=== PATIENT | male | born 1985 | race American Indian/Alaskan Native ===

== ENCOUNTER 2017-09-23 23:14 | Inpatient (IN) | payer SELFPAY ==
[2017-09-24] MEDS ORDERED: NACL 0.9% 1000 ML 1,000 ML IV ONE ×2 (00:16→06:20)
--- NOTE | 2017-09-24 00:16 | Emergency Department Report ---
ED General Adult HPI - General Chief complaint: Fall Stated complaint: GENERAL WEAKNESS Time Seen by Provider: 09/24/17 00:14 Source: EMS Mode of arrival: Stretcher Limitations: No Limitations - History of Present Illness Initial comments: Previously healthy 31-year-old man presents with generalized muscular and abdominal cramping after working outdoors in the sun for approximately 6-8 hours earlier in the day, during which time patient was working heavily with significant exertion. He began to feel badly after about 5 or 6 hours, but this was time for his lunch break, but he did not feel any better after eating, and had to stop working at approximately 2 PM, or 10 hours earlier to arrival. He tried to go home, but began having significant generalized muscular and abdominal cramping, with repeated bouts of nausea and vomiting, and subsequently has developed bilateral chest pain, significantly worse on the right, and is concerned about a rib fracture from the effort at the repeated vomiting. He also became weak after he had gotten home, and fell in the shower from unsteadiness, but did not pass out, did not strike his head, did not lose consciousness, and does not believe that this contributed to his chest pain. EMS was called, and he was treated initially with a liter saline, transported in stable condition, feels a little bit better, but still feels dry mouth, and wants to have something to drink. He also still has significant aching generally, but feels a little more comfortable. Gen. 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 He was in good health, and had not been ill over the past few days, had been well-hydrated, but did not drink very much during the course of this exertion today. -: Gradual (10-12 hours ago) Location: chest, back, abdomen, left, right, upper extremity, lower extremity Severity scale (0 -10): 9 Quality: aching, sharp Consistency: constant Worsens with: movement - Related Data Allergies Allergy/AdvReac Type Severity Reaction Status Date / Time No Known Allergies Allergy Unverified 09/24/17 01:33 ED Review of Systems ROS: Stated complaint: GENERAL WEAKNESS Other details as noted in HPI Comment: All other systems reviewed and negative Constitutional: diaphoresis, malaise, weakness, other (generalized pain). denies: chills, fever Eyes: denies: eye pain, eye discharge, vision change ENT: denies: ear pain, throat pain Respiratory: other (bilateral chest wall pain, right greater than left). denies : shortness of breath Cardiovascular: denies: palpitations, dyspnea on exertion Endocrine: excessive sweating. denies: increased hunger, increased thirst, increased urine Gastrointestinal: abdominal pain, nausea, vomiting. denies: diarrhea, constipation, hematemesis, melena Musculoskeletal: as per HPI, other (generalized musculoskeletal pain, but torso as well as extremities) Skin: denies: rash, lesions, change in color Neurological: weakness, numbness (particular area of upper extremities distally) , paresthesias Psychiatric: denies: anxiety, depression Hematological/Lymphatic: denies: easy bleeding, easy bruising ED Past Medical Hx - Past Medical History Previous Medical History?: No - Surgical History Past Surgical History?: No - Social History Smoking Status: Current Every Day Smoker Substance Use Type: Alcohol ED Physical Exam - General Limitations: No Limitations General appearance: anxious, in distress (crampy muscular skeletal discomfort evident, lying on stretcher and hunched position) - Head Head exam: Present: atraumatic, normocephalic - Eye Eye exam: Present: PERRL - ENT ENT exam: Present: mucous membranes dry - Neck Neck exam: Present: normal inspection, tenderness (bilateral paracervical muscular), full ROM. Absent: meningismus - Respiratory Respiratory exam: Present: normal lung sounds bilaterally, chest wall tenderness (right lower lateral chest wall). Absent: respiratory distress, wheezes, rales, rhonchi - Cardiovascular Cardiovascular Exam: Present: regular rate, normal heart sounds - GI/Abdominal GI/Abdominal exam: Present: tenderness (generalized muscles helpful abdominal tenderness, nonlocalized). Absent: guarding, rebound - Rectal Rectal exam: Present: deferred - Extremities Exam Extremities exam: Present: normal inspection, tenderness (muscular skeletal soft tissue, worsen, advised, biceps,) - Back Exam Back exam: Present: normal inspection, tenderness, muscle spasm, paraspinal tenderness. Absent: CVA tenderness (R), CVA tenderness (L), vertebral tenderness - Neurological Exam Neurological exam: Present: alert, oriented X3, CN II-XII intact. Absent: motor sensory deficit - Psychiatric Psychiatric exam: Present: agitated, anxious - Skin Skin exam: Present: warm, dry. Absent: diaphoretic, petechiae, abrasion, ecchymosis ED Course Vital Signs 09/23/17 09/24/17 23:31 01:30 Temperature 97.6 F Pulse Rate 72 Respiratory 18 Rate Blood Pressure 108/69 O2 Sat by Pulse 94 Oximetry - Reevaluation(s) Reevaluation #1: 09/24/17 06:13 Patient improved after rehydration with normal saline, and also tolerates oral fluids, but still has significant muscle tenderness, and generalized achiness. Significantly, patient's white count is markedly elevated at 30,000, and he has appearance of a right lower lobe pneumonia, although this is previously been asymptomatic, and his clinical picture is more descriptive of an acute rhabdomyolysis. - Consultations Consultation #1: 09/24/17 06:18 Dr. Nunez, hospitalist cardiac surgeon, contacted at 0610 hrs., with patient's findings of acute rhabdomyolysis, and apparent right lower lobe pneumonia, with current treatments, rehydration, and initial antibiotic therapy. She accepts patient for care, and will see patient at time of admission. ED Medical Decision Making - Lab Data Result diagrams: 09/24/17 00:20 09/24/17 00:20 - Radiology Data interpreted by me: Patient has an acute right lower lobe infiltrate, with obscuring of the right hemidiaphragm, but is also possible patient could have an elevated right hemidiaphragm. - Medical Decision Making This patient has acute rhabdomyolysis, as result of recent significant exertion during the middle of the heat of the work day. His creatine kinase is significantly elevated at 2400, but patient's urine on direct observation after intravenous rehydration was fairly clear and moderately yellowish, but with no distinct discoloration. However, patient's clinical findings also included unexpected finding of an acute right lower lobe infiltrate, which had not been symptomatically, the patient had no symptoms of chest discomfort until after he became ill during the middle of the afternoon. It is possible patient could've had a subclinical pneumonia, and additionally became symptomatic as a result of acute dehydration and exertional stress, the patient will be treated for acute pneumonia in any case. Blood cultures have been drawn, and IV and oral rehydration have been continued. Dr. Nunez, hospitalist contacted, and she will admit patient for further care. - Differential Diagnosis rhabdomyolysis, dehydration, heat exhaustion, heat stroke Critical Care Time: Yes Critical care attestation.: If time is entered above; I have spent that time in minutes in the direct care of this critically ill patient, excluding procedure time. Critical Care Time: 30 minutes of critical care time was provided and assessing and stabilizing patient with findings of acute rhabdomyolysis, as well as concomitant right lower lobe pneumonia. No billable procedures were performed during this patient encounter. ED Disposition Clinical Impression: Exertional rhabdomyolysis, Pneumonia of right lower lobe due to infectious organism Disposition: OP ADMIT IP TO THIS HOSP Is pt being admited?: Yes Does the pt Need Aspirin: No Condition: Stable Instructions: Bacterial Pneumonia (ED) Referrals: PRIMARY CARE, [Primary Care Provider] - 3-5 Days Time of Disposition: 06:18
[2017-09-24] MEDS ORDERED: MORPHINE IV ONE (00:39)
[2017-09-24] MEDS ORDERED: ZOFRAN ODT PO ONE (00:39)
[2017-09-24 00:55] LABS: Hematocrit 53.6 % (35.5-45.6); Hemoglobin 17.5 gm/dl (11.8-15.2); Mean Corpuscular HGB Conc 33 % (32-34); Mean Corpuscular Hemoglobin 28 pg (28-32); Mean Corpuscular Volume 86 fl (84-94); Platelet Count 344 K/mm3 (140-440); Red Blood Count 6.23 M/mm3 (3.65-5.03); Red Cell Distribution Width 14.1 % (13.2-15.2)
[2017-09-24 00:56] LABS: Albumin 5.1 g/dL (3.9-5); Calcium 10.4 mg/dL (8.4-10.2)
[2017-09-24] MEDS: ATIVAN IV PRN ×2 (01:28→14:20)
[2017-09-24 02:34] LABS: Band Neutrophils # (Manual) 3.3 K/mm3; Basophils % (Manual) 0 % (0.0-1.8); Eosinophils % (Manual) 0 % (0.0-4.3); Total Cells Counted 100
[2017-09-24 02:36] LABS: Anisocytosis 1+; Hypochromasia Few; Large Platelets Few
[2017-09-24] MEDS ORDERED: ROCEPHIN IM ONE (05:53)
[2017-09-24] MEDS ORDERED: XYLOCAINE 1% MPF 5 mL INFILTRATI ONE (05:53)
[2017-09-24 06:35] LABS: Amorphous Crystals,Urine 1+; Bilirubin,Urine NEG (Negative); Blood,Urine MOD (Negative); Color,Urine Yellow (Yellow); Hyaline Casts,Urine 3 /LPF; Urobilinogen,Urine < 2.0 mg/dL (<2.0)
[2017-09-24 07:15] LABS: BUN/Creatinine Ratio 17; Blood Urea Nitrogen 25 mg/dL (9-20); Calcium 9.3 mg/dL (8.4-10.2); Hemolysis Index 13
--- NOTE | 2017-09-24 11:36 | History and Physical Report ---
History of Present Illness Date of examination: 09/24/17 Date of admission: 09/24/17 06:43 Chief complaint: cough, muscle cramping History of present illness: Previously healthy 31-year-old man presents with generalized muscular and abdominal cramping after working outdoors in the sun for approximately 6-8 hours earlier in the day, during which time patient was working heavily with significant exertion. He began to feel badly after about 5 or 6 hours, but this was time for his lunch break, but he did not feel any better after eating, and had to stop working at approximately 2 PM, or 10 hours earlier to arrival. He tried to go home, but began having significant generalized muscular and abdominal cramping, with repeated bouts of nausea and vomiting, and subsequently has developed bilateral chest pain, significantly worse on the right, and is concerned about a rib fracture from the effort at the repeated vomiting. He also became weak after he had gotten home, and fell in the shower from unsteadiness, but did not pass out, did not strike his head, did not lose consciousness, and does not believe that this contributed to his chest pain. EMS was called, and he was treated initially with a liter saline, transported in stable condition, feels a little bit better, but still feels dry mouth, and wants to have something to drink. He also still has significant aching generally, but feels a little more comfortable. Past History Past Medical History: No medical history Past Surgical History: No surgical history Social history: smoking Family history: no significant family history Medications and Allergies Allergies Allergy/AdvReac Type Severity Reaction Status Date / Time No Known Allergies Allergy Unverified 09/24/17 01:33 Active Meds: Active Medications Lorazepam (Ativan) 1 mg IV Q1H PRN PRN Reason: Muscle Spasm Last Admin: 09/24/17 01:28 Dose: 1 mg Review of Systems All systems: negative Exam - Constitutional Vitals: Temp Pulse Resp BP Pulse Ox 97.6 F 83 20 120/51 96 09/23/17 23:31 09/24/17 09:00 09/24/17 09:00 09/24/17 09:00 09/24/17 09:00 General appearance: Present: no acute distress, well-nourished - EENT Eyes: Present: PERRL ENT: hearing intact, clear oral mucosa - Neck Neck: Present: supple, normal ROM - Respiratory Respiratory effort: normal Respiratory: right: diminished, rhonchi, left: CTA - Cardiovascular Heart Sounds: Present: S1 & S2. Absent: rub, click - Extremities Extremities: pulses symmetrical, No edema Peripheral Pulses: within normal limits - Abdominal General gastrointestinal: Present: soft, non-tender, non-distended, normal bowel sounds Male genitourinary: Present: normal - Integumentary Integumentary: Present: clear, warm, dry - Musculoskeletal Musculoskeletal: gait normal, strength equal bilaterally - Psychiatric Psychiatric: appropriate mood/affect, intact judgment & insight - Neurologic Neurologic: CNII-XII intact, moves all extremities Results - Labs CBC & Chem 7: 09/24/17 00:20 09/24/17 06:37 Labs: Laboratory Last Values WBC 30.3 K/mm3 (4.5-11.0) H 09/24/17 00:20 RBC 6.23 M/mm3 (3.65-5.03) H 09/24/17 00:20 Hgb 17.5 gm/dl (11.8-15.2) H 09/24/17 00:20 Hct 53.6 % (35.5-45.6) H 09/24/17 00:20 MCV 86 fl (84-94) 09/24/17 00:20 MCH 28 pg (28-32) 09/24/17 00:20 MCHC 33 % (32-34) 09/24/17 00:20 RDW 14.1 % (13.2-15.2) 09/24/17 00:20 Plt Count 344 K/mm3 (140-440) 09/24/17 00:20 Add Manual Diff Complete 09/24/17 00:20 Total Counted 100 09/24/17 00:20 Seg Neutrophils % Structural Fitter 09/24/17 00:20 Seg Neuts % (Manual) 67.0 % (40.0-70.0) 09/24/17 00:20 Band Neutrophils % 11.0 % 09/24/17 00:20 Lymphocytes % (Manual) 13.0 % (13.4-35.0) L 09/24/17 00:20 Reactive Lymphs % (Man) 0 % 09/24/17 00:20 Monocytes % (Manual) 9.0 % (0.0-7.3) H 09/24/17 00:20 Eosinophils % (Manual) 0 % (0.0-4.3) 09/24/17 00:20 Basophils % (Manual) 0 % (0.0-1.8) 09/24/17 00:20 Metamyelocytes % 0 % 09/24/17 00:20 Myelocytes % 0 % 09/24/17 00:20 Promyelocytes % 0 % 09/24/17 00:20 Blast Cells % 0 % 09/24/17 00:20 Nucleated RBC % Not Reportable 09/24/17 00:20 Seg Neutrophils # Man 20.3 K/mm3 (1.8-7.7) H 09/24/17 00:20 Band Neutrophils # 3.3 K/mm3 09/24/17 00:20 Lymphocytes # (Manual) 3.9 K/mm3 (1.2-5.4) 09/24/17 00:20 Abs React Lymphs (Man) 0.0 K/mm3 09/24/17 00:20 Monocytes # (Manual) 2.7 K/mm3 (0.0-0.8) H 09/24/17 00:20 Eosinophils # (Manual) 0.0 K/mm3 (0.0-0.4) 09/24/17 00:20 Basophils # (Manual) 0.0 K/mm3 (0.0-0.1) 09/24/17 00:20 Metamyelocytes # 0.0 K/mm3 09/24/17 00:20 Myelocytes # 0.0 K/mm3 09/24/17 00:20 Promyelocytes # 0.0 K/mm3 09/24/17 00:20 Blast Cells # 0.0 K/mm3 09/24/17 00:20 WBC Morphology Not Reportable 09/24/17 00:20 Hypersegmented Neuts Not Reportable 09/24/17 00:20 Hyposegmented Neuts Not Reportable 09/24/17 00:20 Hypogranular Neuts Not Reportable 09/24/17 00:20 Smudge Cells Not Reportable 09/24/17 00:20 Toxic Granulation Not Reportable 09/24/17 00:20 Toxic Vacuolation Not Reportable 09/24/17 00:20 Dohle Bodies Not Reportable 09/24/17 00:20 Pelger-Huet Anomaly Not Reportable 09/24/17 00:20 Anne Rods Not Reportable 09/24/17 00:20 Platelet Estimate Appears normal 09/24/17 00:20 Clumped Platelets Not Reportable 09/24/17 00:20 Plt Clumps, EDTA Not Reportable 09/24/17 00:20 Large Platelets Few 09/24/17 00:20 Giant Platelets Not Reportable 09/24/17 00:20 Platelet Satelliting Not Reportable 09/24/17 00:20 Plt Morphology Comment Not Reportable 09/24/17 00:20 RBC Morphology Not Reportable 09/24/17 00:20 Dimorphic RBCs Not Reportable 09/24/17 00:20 Polychromasia Not Reportable 09/24/17 00:20 Hypochromasia Few 09/24/17 00:20 Poikilocytosis Not Reportable 09/24/17 00:20 Anisocytosis 1+ 09/24/17 00:20 Microcytosis Not Reportable 09/24/17 00:20 Macrocytosis Not Reportable 09/24/17 00:20 Spherocytes Not Reportable 09/24/17 00:20 Pappenheimer Bodies Not Reportable 09/24/17 00:20 Sickle Cells Not Reportable 09/24/17 00:20 Target Cells Not Reportable 09/24/17 00:20 Tear Drop Cells Not Reportable 09/24/17 00:20 Ovalocytes Not Reportable 09/24/17 00:20 Helmet Cells Not Reportable 09/24/17 00:20 [place] Bodies Not Reportable 09/24/17 00:20 [place] Rings Not Reportable 09/24/17 00:20 Elva Cells Not Reportable 09/24/17 00:20 Bite Cells Not Reportable 09/24/17 00:20 Crenated Cell Not Reportable 09/24/17 00:20 Elliptocytes Not Reportable 09/24/17 00:20 Acanthocytes (Spur) Not Reportable 09/24/17 00:20 Rouleaux Not Reportable 09/24/17 00:20 Hemoglobin C Crystals Not Reportable 09/24/17 00:20 Schistocytes Not Reportable 09/24/17 00:20 Malaria parasites Not Reportable 09/24/17 00:20 Arnold Bodies Not Reportable 06/02/18 00:20 Hem Pathologist Commnt No 09/24/17 00:20 Sodium 136 mmol/L (137-145) L 09/24/17 06:37 Potassium 4.3 mmol/L (3.6-5.0) 09/24/17 06:37 Chloride 91.0 mmol/L (98-107) L 09/24/17 06:37 Carbon Dioxide 26 mmol/L (22-30) 09/24/17 06:37 Anion Gap 23 mmol/L 09/24/17 06:37 BUN 25 mg/dL (9-20) H 09/24/17 06:37 Creatinine 1.5 mg/dL (0.8-1.5) 09/24/17 06:37 Estimated GFR > 60 ml/min 09/24/17 06:37 BUN/Creatinine Ratio 17 % 09/24/17 06:37 Glucose 108 mg/dL (75-100) H 09/24/17 06:37 Lactic Acid 1.90 mmol/L (0.7-2.0) 09/24/17 02:03 Calcium 9.3 mg/dL (8.4-10.2) 09/24/17 06:37 Total Bilirubin 0.50 mg/dL (0.1-1.2) 09/24/17 00:20 AST 54 units/L (5-40) H 09/24/17 00:20 ALT 23 units/L (7-56) 09/24/17 00:20 Alkaline Phosphatase 116 units/L (35-129) 09/24/17 00:20 Total Creatine Kinase 4946 units/L (55-170) H 09/24/17 06:37 Total Protein 8.5 g/dL (6.3-8.2) H 09/24/17 00:20 Albumin 5.1 g/dL (3.9-5) H 09/24/17 00:20 Albumin/Globulin Ratio 1.5 % 09/24/17 00:20 Urine Color Yellow (Yellow) 09/24/17 06:11 Urine Turbidity Clear (Clear) 09/24/17 06:11 Urine pH 5.0 (5.0-7.0) 09/24/17 06:11 Ur Specific [place] 1.014 (1.003-1.030) 09/24/17 06:11 Urine Protein 30 mg/dl mg/dL (Negative) 09/24/17 06:11 Urine Glucose (UA) Neg mg/dL (Negative) 09/24/17 06:11 Urine Ketones Neg mg/dL (Negative) 09/24/17 06:11 Urine Blood Mod (Negative) 09/24/17 06:11 Urine Nitrite Neg (Negative) 09/24/17 06:11 Urine Bilirubin Neg (Negative) 09/24/17 06:11 Urine Urobilinogen < 2.0 mg/dL (<2.0) 09/24/17 06:11 Ur Leukocyte Esterase Neg (Negative) 09/24/17 06:11 Urine WBC (Auto) 1.0 /HPF (0.0-6.0) 09/24/17 06:11 Urine RBC (Auto) 6.0 /HPF (0.0-6.0) 09/24/17 06:11 Amorphous Crystals 1+ 09/24/17 06:11 Hyaline Casts 3 /LPF 09/24/17 06:11 Assessment and Plan Assessment and plan: Sepsis. Patient will be placed on the sepsis pathway and we will follow-up blood cultures. Continue IV antibiotics. Right lower lobe pneumonia. Continue IV antibiotics and follow-up chest x-ray. Pleurisy. Etiology of chest pain is likely secondary to right lower lobe pneumonia. Toradol when necessary. Rhabdomyolysis. Etiology secondary to the physical exertion and pneumonia. Continue to follow CK levels and continue IV fluid hydration.
[2017-09-24] MEDS: NACL 0.9% 1000 ML 1,000 ML IV SCH (14:20)
[2017-09-24] MEDS: MORPHINE IV PRN (14:21)
[2017-09-24] MEDS: LOVENOX SUB-Q SCH (22:00)
[2017-09-25] MEDS: NACL 0.9% 1000 ML 1,000 ML IV SCH ×2 (03:59→21:44)
[2017-09-25 06:24] LABS: Basophils % (Auto) 0.4 % (0.0-1.8); Eosinophils % (Auto) 0.4 % (0.0-4.3); Hematocrit 46.3 % (35.5-45.6); Hemoglobin 15.2 gm/dl (11.8-15.2); Lymphocytes # (Auto) 2.6 K/mm3 (1.2-5.4); Lymphocytes % (Auto) 22.5 % (13.4-35.0); Mean Corpuscular HGB Conc 33 % (32-34); Mean Corpuscular Hemoglobin 28 pg (28-32); Mean Corpuscular Volume 85 fl (84-94); Monocytes # (Auto) 0.8 K/mm3 (0.0-0.8); Monocytes % (Auto) 7.1 % (0.0-7.3); Platelet Count 277 K/mm3 (140-440); Red Blood Count 5.46 M/mm3 (3.65-5.03); Red Cell Distribution Width 13.9 % (13.2-15.2)
[2017-09-25 07:04] LABS: BUN/Creatinine Ratio 15; Blood Urea Nitrogen 12 mg/dL (9-20); Calcium 8.5 mg/dL (8.4-10.2); Hemolysis Index 3
[2017-09-25] MEDS: MORPHINE IV PRN (09:43)
--- NOTE | 2017-09-25 11:27 | Progress Note ---
Assessment and Plan Assessment and plan: Sepsis. Continue IV antibiotics. Right lower lobe pneumonia. Continue IV antibiotics and follow-up chest x-ray. Pleurisy. Etiology of chest pain is likely secondary to right lower lobe pneumonia. Toradol when necessary. Rhabdomyolysis. Etiology secondary to the physical exertion and pneumonia. Continue to follow CK levels and continue IV fluid hydration. History Interval history: No New issues overnight. Hospitalist Physical - Constitutional Vitals: Temp Pulse Resp BP Pulse Ox 98.9 F 76 16 122/74 100 09/25/17 08:03 09/25/17 08:03 09/25/17 08:03 09/25/17 08:03 09/25/17 08:03 General appearance: Present: no acute distress, well-nourished - EENT Eyes: Present: PERRL, EOM intact ENT: hearing intact, clear oral mucosa, dentition normal - Neck Neck: Present: supple, normal ROM - Respiratory Respiratory effort: normal Respiratory: bilateral: CTA - Cardiovascular Rhythm: regular Heart Sounds: Present: S1 & S2. Absent: gallop, rub - Extremities Extremities: no ischemia, No edema, Full ROM - Abdominal General gastrointestinal: soft, non-tender, non-distended, normal bowel sounds - Integumentary Integumentary: Present: clear, warm, dry - Neurologic Neurologic: CNII-XII intact, moves all extremities Results - Labs CBC & Chem 7: 09/25/17 05:25 09/25/17 05:25 Labs: Laboratory Last Values WBC 11.7 K/mm3 (4.5-11.0) H 09/25/17 05:25 RBC 5.46 M/mm3 (3.65-5.03) H 09/25/17 05:25 Hgb 15.2 gm/dl (11.8-15.2) 09/25/17 05:25 Hct 46.3 % (35.5-45.6) H D 09/25/17 05:25 MCV 85 fl (84-94) 09/25/17 05:25 MCH 28 pg (28-32) 09/25/17 05:25 MCHC 33 % (32-34) 09/25/17 05:25 RDW 13.9 % (13.2-15.2) 09/25/17 05:25 Plt Count 277 K/mm3 (140-440) 09/25/17 05:25 Lymph % (Auto) 22.5 % (13.4-35.0) 09/25/17 05:25 [place] % (Auto) 7.1 % (0.0-7.3) 09/25/17 05:25 Eos % (Auto) 0.4 % (0.0-4.3) 09/25/17 05:25 Baso % (Auto) 0.4 % (0.0-1.8) 09/25/17 05:25 Lymph # 2.6 K/mm3 (1.2-5.4) 09/25/17 05:25 [place] # 0.8 K/mm3 (0.0-0.8) 09/25/17 05:25 Eos # 0.0 K/mm3 (0.0-0.4) 09/25/17 05:25 Baso # 0.0 K/mm3 (0.0-0.1) 09/25/17 05:25 Add Manual Diff Complete 09/24/17 00:20 Total Counted 100 09/24/17 00:20 Seg Neutrophils % 69.6 % (40.0-70.0) 09/25/17 05:25 Seg Neuts % (Manual) 67.0 % (40.0-70.0) 09/24/17 00:20 Band Neutrophils % 11.0 % 09/24/17 00:20 Lymphocytes % (Manual) 13.0 % (13.4-35.0) L 09/24/17 00:20 Reactive Lymphs % (Man) 0 % 09/24/17 00:20 Monocytes % (Manual) 9.0 % (0.0-7.3) H 09/24/17 00:20 Eosinophils % (Manual) 0 % (0.0-4.3) 09/24/17 00:20 Basophils % (Manual) 0 % (0.0-1.8) 09/24/17 00:20 Metamyelocytes % 0 % 09/24/17 00:20 Myelocytes % 0 % 09/24/17 00:20 Promyelocytes % 0 % 09/24/17 00:20 Blast Cells % 0 % 09/24/17 00:20 Nucleated RBC % Not Reportable 09/24/17 00:20 Seg Neutrophils # 8.1 K/mm3 (1.8-7.7) H 09/25/17 05:25 Seg Neutrophils # Man 20.3 K/mm3 (1.8-7.7) H 09/24/17 00:20 Band Neutrophils # 3.3 K/mm3 09/24/17 00:20 Lymphocytes # (Manual) 3.9 K/mm3 (1.2-5.4) 09/24/17 00:20 Abs React Lymphs (Man) 0.0 K/mm3 09/24/17 00:20 Monocytes # (Manual) 2.7 K/mm3 (0.0-0.8) H 09/24/17 00:20 Eosinophils # (Manual) 0.0 K/mm3 (0.0-0.4) 09/24/17 00:20 Basophils # (Manual) 0.0 K/mm3 (0.0-0.1) 09/24/17 00:20 Metamyelocytes # 0.0 K/mm3 09/24/17 00:20 Myelocytes # 0.0 K/mm3 09/24/17 00:20 Promyelocytes # 0.0 K/mm3 09/24/17 00:20 Blast Cells # 0.0 K/mm3 09/24/17 00:20 WBC Morphology Not Reportable 09/24/17 00:20 Hypersegmented Neuts Not Reportable 09/24/17 00:20 Hyposegmented Neuts Not Reportable 09/24/17 00:20 Hypogranular Neuts Not Reportable 09/24/17 00:20 Smudge Cells Not Reportable 09/24/17 00:20 Toxic Granulation Not Reportable 09/24/17 00:20 Toxic Vacuolation Not Reportable 09/24/17 00:20 Dohle Bodies Not Reportable 09/24/17 00:20 Pelger-Huet Anomaly Not Reportable 09/24/17 00:20 Anne Rods Not Reportable 09/24/17 00:20 Platelet Estimate Appears normal 09/24/17 00:20 Clumped Platelets Not Reportable 09/24/17 00:20 Plt Clumps, EDTA Not Reportable 09/24/17 00:20 Large Platelets Few 09/24/17 00:20 Giant Platelets Not Reportable 09/24/17 00:20 Platelet Satelliting Not Reportable 09/24/17 00:20 Plt Morphology Comment Not Reportable 09/24/17 00:20 RBC Morphology Not Reportable 09/24/17 00:20 Dimorphic RBCs Not Reportable 09/24/17 00:20 Polychromasia Not Reportable 09/24/17 00:20 Hypochromasia Few 09/24/17 00:20 Poikilocytosis Not Reportable 09/24/17 00:20 Anisocytosis 1+ 09/24/17 00:20 Microcytosis Not Reportable 09/24/17 00:20 Macrocytosis Not Reportable 09/24/17 00:20 Spherocytes Not Reportable 09/24/17 00:20 Pappenheimer Bodies Not Reportable 09/24/17 00:20 Sickle Cells Not Reportable 09/24/17 00:20 Target Cells Not Reportable 09/24/17 00:20 Tear Drop Cells Not Reportable 09/24/17 00:20 Ovalocytes Not Reportable 09/24/17 00:20 Helmet Cells Not Reportable 09/24/17 00:20 [place] Bodies Not Reportable 09/24/17 00:20 [place] Rings Not Reportable 09/24/17 00:20 Elva Cells Not Reportable 09/24/17 00:20 Bite Cells Not Reportable 09/24/17 00:20 Crenated Cell Not Reportable 09/24/17 00:20 Elliptocytes Not Reportable 09/24/17 00:20 Acanthocytes (Spur) Not Reportable 09/24/17 00:20 Rouleaux Not Reportable 09/24/17 00:20 Hemoglobin C Crystals Not Reportable 09/24/17 00:20 Schistocytes Not Reportable 09/24/17 00:20 Malaria parasites Not Reportable 09/24/17 00:20 Arnold Bodies Not Reportable 09/24/17 00:20 Hem Pathologist Commnt No 09/24/17 00:20 Sodium 140 mmol/L (137-145) 09/25/17 05:25 Potassium 4.7 mmol/L (3.6-5.0) 09/25/17 05:25 Chloride 102.6 mmol/L (98-107) 09/25/17 05:25 Carbon Dioxide 28 mmol/L (22-30) 09/25/17 05:25 Anion Gap 14 mmol/L 09/25/17 05:25 BUN 12 mg/dL (9-20) 09/25/17 05:25 Creatinine 0.8 mg/dL (0.8-1.5) 09/25/17 05:25 Estimated GFR > 60 ml/min 09/25/17 05:25 BUN/Creatinine Ratio 15 % 09/25/17 05:25 Glucose 91 mg/dL (75-100) 09/25/17 05:25 Lactic Acid 1.00 mmol/L (0.7-2.0) 09/24/17 15:21 Calcium 8.5 mg/dL (8.4-10.2) 09/25/17 05:25 Total Bilirubin 0.50 mg/dL (0.1-1.2) 09/24/17 00:20 AST 54 units/L (5-40) H 09/24/17 00:20 ALT 23 units/L (7-56) 09/24/17 00:20 Alkaline Phosphatase 116 units/L (35-129) 09/24/17 00:20 Total Creatine Kinase 8486 units/L (55-170) H 09/25/17 05:25 Total Protein 8.5 g/dL (6.3-8.2) H 09/24/17 00:20 Albumin 5.1 g/dL (3.9-5) H 09/24/17 00:20 Albumin/Globulin Ratio 1.5 % 09/24/17 00:20 Urine Color Yellow (Yellow) 09/24/17 06:11 Urine Turbidity Clear (Clear) 09/24/17 06:11 Urine pH 5.0 (5.0-7.0) 09/24/17 06:11 Ur Specific [place] 1.014 (1.003-1.030) 09/24/17 06:11 Urine Protein 30 mg/dl mg/dL (Negative) 09/24/17 06:11 Urine Glucose (UA) Neg mg/dL (Negative) 09/24/17 06:11 Urine Ketones Neg mg/dL (Negative) 09/24/17 06:11 Urine Blood Mod (Negative) 09/24/17 06:11 Urine Nitrite Neg (Negative) 09/24/17 06:11 Urine Bilirubin Neg (Negative) 09/24/17 06:11 Urine Urobilinogen < 2.0 mg/dL (<2.0) 09/24/17 06:11 Ur Leukocyte Esterase Neg (Negative) 09/24/17 06:11 Urine WBC (Auto) 1.0 /HPF (0.0-6.0) 09/24/17 06:11 Urine RBC (Auto) 6.0 /HPF (0.0-6.0) 09/24/17 06:11 Amorphous Crystals 1+ 09/24/17 06:11 Hyaline Casts 3 /LPF 09/24/17 06:11 Blood Type O POSITIVE 09/24/17 15:25 Antibody Screen Negative 09/24/17 15:25
[2017-09-25] MEDS: LOVENOX SUB-Q SCH (21:44)
--- NOTE | 2017-09-26 09:17 | Progress Note ---
Assessment and Plan Assessment and plan: Sepsis. Continue IV antibiotics. Blood cultures no growth 48 hours. Right lower lobe community-acquired pneumonia. Continue IV antibiotics and follow-up chest x-ray. Pleurisy. Etiology of chest pain is likely secondary to right lower lobe pneumonia. Toradol when necessary. Rhabdomyolysis. Etiology secondary to the physical exertion and pneumonia. Continue to follow CK levels/creatinine and continue IV fluid hydration. CK level 9369. Anticipate discharge once CK level less than 4000. Acute renal failure. Etiology multifactorial likely secondary to acute kidney injury from sepsis/ATN, vasomotor nephropathy from dehydration and rhabdomyolysis. Resolved. Continue IV fluid hydration. Check renal ultrasound. History Interval history: No New issues overnight. Hospitalist Physical - Constitutional Vitals: Temp Pulse Resp BP Pulse Ox 97.8 F 54 L 18 106/65 100 09/25/17 23:44 09/25/17 23:44 09/25/17 23:44 09/25/17 23:44 09/25/17 23:44 General appearance: Present: no acute distress, well-nourished - EENT Eyes: Present: PERRL, EOM intact ENT: hearing intact, clear oral mucosa, dentition normal - Neck Neck: Present: supple, normal ROM - Respiratory Respiratory effort: normal Respiratory: bilateral: CTA - Cardiovascular Rhythm: regular Heart Sounds: Present: S1 & S2. Absent: gallop, rub - Extremities Extremities: no ischemia, No edema, Full ROM - Abdominal General gastrointestinal: soft, non-tender, non-distended, normal bowel sounds - Integumentary Integumentary: Present: clear, warm, dry - Neurologic Neurologic: CNII-XII intact, moves all extremities Results - Labs CBC & Chem 7: 09/25/17 05:25 09/25/17 05:25 Labs: Laboratory Last Values WBC 11.7 K/mm3 (4.5-11.0) H 09/25/17 05:25 RBC 5.46 M/mm3 (3.65-5.03) H 09/25/17 05:25 Hgb 15.2 gm/dl (11.8-15.2) 09/25/17 05:25 Hct 46.3 % (35.5-45.6) H D 09/25/17 05:25 MCV 85 fl (84-94) 09/25/17 05:25 MCH 28 pg (28-32) 09/25/17 05:25 MCHC 33 % (32-34) 09/25/17 05:25 RDW 13.9 % (13.2-15.2) 09/25/17 05:25 Plt Count 277 K/mm3 (140-440) 09/25/17 05:25 Lymph % (Auto) 22.5 % (13.4-35.0) 09/25/17 05:25 [place] % (Auto) 7.1 % (0.0-7.3) 09/25/17 05:25 Eos % (Auto) 0.4 % (0.0-4.3) 09/25/17 05:25 Baso % (Auto) 0.4 % (0.0-1.8) 09/25/17 05:25 Lymph # 2.6 K/mm3 (1.2-5.4) 09/25/17 05:25 [place] # 0.8 K/mm3 (0.0-0.8) 09/25/17 05:25 Eos # 0.0 K/mm3 (0.0-0.4) 09/25/17 05:25 Baso # 0.0 K/mm3 (0.0-0.1) 09/25/17 05:25 Add Manual Diff Complete 09/24/17 00:20 Total Counted 100 09/24/17 00:20 Seg Neutrophils % 69.6 % (40.0-70.0) 09/25/17 05:25 Seg Neuts % (Manual) 67.0 % (40.0-70.0) 09/24/17 00:20 Band Neutrophils % 11.0 % 09/24/17 00:20 Lymphocytes % (Manual) 13.0 % (13.4-35.0) L 09/24/17 00:20 Reactive Lymphs % (Man) 0 % 09/24/17 00:20 Monocytes % (Manual) 9.0 % (0.0-7.3) H 09/24/17 00:20 Eosinophils % (Manual) 0 % (0.0-4.3) 09/24/17 00:20 Basophils % (Manual) 0 % (0.0-1.8) 09/24/17 00:20 Metamyelocytes % 0 % 09/24/17 00:20 Myelocytes % 0 % 09/24/17 00:20 Promyelocytes % 0 % 09/24/17 00:20 Blast Cells % 0 % 09/24/17 00:20 Nucleated RBC % Not Reportable 09/24/17 00:20 Seg Neutrophils # 8.1 K/mm3 (1.8-7.7) H 09/25/17 05:25 Seg Neutrophils # Man 20.3 K/mm3 (1.8-7.7) H 09/24/17 00:20 Band Neutrophils # 3.3 K/mm3 09/24/17 00:20 Lymphocytes # (Manual) 3.9 K/mm3 (1.2-5.4) 09/24/17 00:20 Abs React Lymphs (Man) 0.0 K/mm3 09/24/17 00:20 Monocytes # (Manual) 2.7 K/mm3 (0.0-0.8) H 09/24/17 00:20 Eosinophils # (Manual) 0.0 K/mm3 (0.0-0.4) 09/24/17 00:20 Basophils # (Manual) 0.0 K/mm3 (0.0-0.1) 09/24/17 00:20 Metamyelocytes # 0.0 K/mm3 09/24/17 00:20 Myelocytes # 0.0 K/mm3 09/24/17 00:20 Promyelocytes # 0.0 K/mm3 09/24/17 00:20 Blast Cells # 0.0 K/mm3 09/24/17 00:20 WBC Morphology Not Reportable 09/24/17 00:20 Hypersegmented Neuts Not Reportable 09/24/17 00:20 Hyposegmented Neuts Not Reportable 09/24/17 00:20 Hypogranular Neuts Not Reportable 09/24/17 00:20 Smudge Cells Not Reportable 09/24/17 00:20 Toxic Granulation Not Reportable 09/24/17 00:20 Toxic Vacuolation Not Reportable 09/24/17 00:20 Dohle Bodies Not Reportable 09/24/17 00:20 Pelger-Huet Anomaly Not Reportable 09/24/17 00:20 Anne Rods Not Reportable 09/24/17 00:20 Platelet Estimate Appears normal 09/24/17 00:20 Clumped Platelets Not Reportable 09/24/17 00:20 Plt Clumps, EDTA Not Reportable 09/24/17 00:20 Large Platelets Few 09/24/17 00:20 Giant Platelets Not Reportable 09/24/17 00:20 Platelet Satelliting Not Reportable 09/24/17 00:20 Plt Morphology Comment Not Reportable 09/24/17 00:20 RBC Morphology Not Reportable 09/24/17 00:20 Dimorphic RBCs Not Reportable 09/24/17 00:20 Polychromasia Not Reportable 09/24/17 00:20 Hypochromasia Few 09/24/17 00:20 Poikilocytosis Not Reportable 09/24/17 00:20 Anisocytosis 1+ 09/24/17 00:20 Microcytosis Not Reportable 09/24/17 00:20 Macrocytosis Not Reportable 09/24/17 00:20 Spherocytes Not Reportable 09/24/17 00:20 Pappenheimer Bodies Not Reportable 09/24/17 00:20 Sickle Cells Not Reportable 09/24/17 00:20 Target Cells Not Reportable 09/24/17 00:20 Tear Drop Cells Not Reportable 09/24/17 00:20 Ovalocytes Not Reportable 09/24/17 00:20 Helmet Cells Not Reportable 09/24/17 00:20 [place] Bodies Not Reportable 09/24/17 00:20 [place] Rings Not Reportable 09/24/17 00:20 Elva Cells Not Reportable 09/24/17 00:20 Bite Cells Not Reportable 09/24/17 00:20 Crenated Cell Not Reportable 09/24/17 00:20 Elliptocytes Not Reportable 09/24/17 00:20 Acanthocytes (Spur) Not Reportable 09/24/17 00:20 Rouleaux Not Reportable 09/24/17 00:20 Hemoglobin C Crystals Not Reportable 09/24/17 00:20 Schistocytes Not Reportable 09/24/17 00:20 Malaria parasites Not Reportable 09/24/17 00:20 Arnold Bodies Not Reportable 09/24/17 00:20 Hem Pathologist Commnt No 09/24/17 00:20 Sodium 140 mmol/L (137-145) 09/25/17 05:25 Potassium 4.7 mmol/L (3.6-5.0) 09/25/17 05:25 Chloride 102.6 mmol/L (98-107) 09/25/17 05:25 Carbon Dioxide 28 mmol/L (22-30) 09/25/17 05:25 Anion Gap 14 mmol/L 09/25/17 05:25 BUN 12 mg/dL (9-20) 09/25/17 05:25 Creatinine 0.8 mg/dL (0.8-1.5) 09/25/17 05:25 Estimated GFR > 60 ml/min 09/25/17 05:25 BUN/Creatinine Ratio 15 % 09/25/17 05:25 Glucose 91 mg/dL (75-100) 09/25/17 05:25 Lactic Acid 1.00 mmol/L (0.7-2.0) 09/24/17 15:21 Calcium 8.5 mg/dL (8.4-10.2) 09/25/17 05:25 Total Bilirubin 0.50 mg/dL (0.1-1.2) 09/24/17 00:20 AST 54 units/L (5-40) H 09/24/17 00:20 ALT 23 units/L (7-56) 09/24/17 00:20 Alkaline Phosphatase 116 units/L (35-129) 09/24/17 00:20 Total Creatine Kinase 9369 units/L (55-170) H 09/26/17 05:25 Total Protein 8.5 g/dL (6.3-8.2) H 09/24/17 00:20 Albumin 5.1 g/dL (3.9-5) H 09/24/17 00:20 Albumin/Globulin Ratio 1.5 % 09/24/17 00:20 Urine Color Yellow (Yellow) 09/24/17 06:11 Urine Turbidity Clear (Clear) 09/24/17 06:11 Urine pH 5.0 (5.0-7.0) 09/24/17 06:11 Ur Specific [place] 1.014 (1.003-1.030) 09/24/17 06:11 Urine Protein 30 mg/dl mg/dL (Negative) 09/24/17 06:11 Urine Glucose (UA) Neg mg/dL (Negative) 09/24/17 06:11 Urine Ketones Neg mg/dL (Negative) 09/24/17 06:11 Urine Blood Mod (Negative) 09/24/17 06:11 Urine Nitrite Neg (Negative) 09/24/17 06:11 Urine Bilirubin Neg (Negative) 09/24/17 06:11 Urine Urobilinogen < 2.0 mg/dL (<2.0) 09/24/17 06:11 Ur Leukocyte Esterase Neg (Negative) 09/24/17 06:11 Urine WBC (Auto) 1.0 /HPF (0.0-6.0) 09/24/17 06:11 Urine RBC (Auto) 6.0 /HPF (0.0-6.0) 09/24/17 06:11 Amorphous Crystals 1+ 09/24/17 06:11 Hyaline Casts 3 /LPF 09/24/17 06:11 Blood Type O POSITIVE 09/24/17 15:25 Antibody Screen Negative 09/24/17 15:25
[2017-09-26] MEDS: NACL 0.9% 1000 ML 1,000 ML IV SCH ×2 (12:21→23:32)
--- NOTE | 2017-09-26 12:43 | Ultrasound Report ---
ULTRASOUND RENAL BILATERAL HISTORY: Acute renal failure. TECHNIQUE: transabdominal ultrasound with color Doppler interrogation. COMPARISON: none. FINDINGS: The right kidney measures 11.6cm. Right renal cortex: 1.4cm. The left kidney measures 11.7cm. Left renal cortex: 2.1cm. The kidneys are normal size, contour and position. There is increased renal parenchymal echotexture bilaterally. Corticomedullary differentiation is preserved. No evidence for cystic disease, mass, nephrolithiasis, hydronephrosis or perinephric fluid. The views of the bladder and the region of the ureters appear normal. IMPRESSION: Normal size but slightly echogenic kidneys consistent with nonspecific renal parenchymal disease or acute renal failure.
--- NOTE | 2017-09-26 14:26 | Cat Scan Report ---
FINAL REPORT EXAM: CT CHEST W CON HISTORY: right chest pain, abnormal CXR TECHNIQUE: CT imaging obtained through the chest following intravenous administration of contrast. Transaxial, Coronal and sagittal reformats are provided. PRIORS: Chest and rib radiographs 09/23/2017 FINDINGS: Mediastinum is unremarkable. Thoracic aorta is normal in course and caliber. No pneumothorax, effusion or focal airspace disease. Linear right lower and middle lobe atelectasis. The central airways are patent. No bronchiectasis. Imaged portion of the upper abdomen is unremarkable. The superficial soft tissues are remarkable for gynecomastia. No acute bony abnormality or worrisome osseous lesions identified. IMPRESSION: Linear right basilar and middle lobe atelectasis. No focal airspace disease, pneumothorax, effusion or rib fracture. Mild bilateral gynecomastia.
--- NOTE | 2017-09-26 14:26 | XRay Report ---
FINAL REPORT PROCEDURE: XR RIBS BILAT W/PA CHEST 4+V TECHNIQUE: Bilateral rib radiographs, minimum of 4 views, including PA projection. CPT 30945 HISTORY: chest wall pain, R lateral > Left, Chest pain 786.50 COMPARISON: No prior studies are available for comparison. FINDINGS: Heart: Normal . Mediastinum/Vessels: Normal . Lungs: There is no pneumothorax. There is focal atelectasis at the right lung base.. Pleural space: There is a small right pleural effusion.. Pneumothorax: None . Bony thorax/ribs: No acute or displaced rib fractures. IMPRESSION: There are no rib fractures. There is no pneumothorax. There is focal atelectasis at the right lung base.. There is a small right pleural effusion..
[2017-09-26] MEDS: LOVENOX SUB-Q SCH (22:27)
[2017-09-27 05:23] LABS: Basophils % (Auto) 0.5 % (0.0-1.8); Eosinophils # (Auto) 0.1 K/mm3 (0.0-0.4); Eosinophils % (Auto) 0.7 % (0.0-4.3); Hematocrit 44.2 % (35.5-45.6); Lymphocytes # (Auto) 2.4 K/mm3 (1.2-5.4); Lymphocytes % (Auto) 30.2 % (13.4-35.0); Mean Corpuscular HGB Conc 34 % (32-34); Mean Corpuscular Hemoglobin 29 pg (28-32); Mean Corpuscular Volume 84 fl (84-94); Monocytes # (Auto) 0.7 K/mm3 (0.0-0.8); Monocytes % (Auto) 9.3 % (0.0-7.3); Platelet Count 259 K/mm3 (140-440); Red Blood Count 5.24 M/mm3 (3.65-5.03); Red Cell Distribution Width 13.4 % (13.2-15.2)
[2017-09-27 05:52] LABS: BUN/Creatinine Ratio 18; Blood Urea Nitrogen 11 mg/dL (9-20); Calcium 8.9 mg/dL (8.4-10.2); Hemolysis Index 2
[2017-09-27] MEDS: NACL 0.9% 1000 ML 1,000 ML IV SCH ×2 (13:18→21:32)
--- NOTE | 2017-09-27 17:11 | Progress Note ---
Assessment and Plan Assessment and plan: Sepsis. Continue IV antibiotics. Blood cultures no growth to date. Right lower lobe community-acquired pneumonia. Continue IV antibiotics and follow-up chest x-ray. Pleurisy. Etiology of chest pain is likely secondary to right lower lobe pneumonia. Toradol when necessary. Rhabdomyolysis. Etiology secondary to the physical exertion . Continue to follow CK levels/creatinine and continue IV fluid hydration. CK level 6000 today. Increase IVF to NS at 125cc/hr. Acute renal failure. Etiology multifactorial likely secondary to acute kidney injury from sepsis/ATN, vasomotor nephropathy from dehydration and rhabdomyolysis. Resolved. Continue IV fluid hydration. History Interval history: Less muscle cramps, No fever, No chest pain Hospitalist Physical - Physical exam Narrative exam: General: Not in acute distress, lying in bed,obese HEENT:Normocephalic, atraumatic Neck:supple,no JVD Lungs: Clear to auscultation bilaterally, no crackles, no wheeze Heart:S1 and S2 regular, no murmurs, rubs or gallop Abd: soft, non tender, non distended, normal bowel sounds Ext: No edema, no clubbing, no cyanosis Neuro: AAO x 3, moves all extremities. - Constitutional Vitals: Temp Pulse Resp BP Pulse Ox 98.4 F 50 L 20 119/75 100 09/27/17 16:12 09/27/17 16:12 09/27/17 16:12 09/27/17 16:12 09/27/17 16:12 General appearance: Present: no acute distress Results - Labs CBC & Chem 7: 09/27/17 04:48 09/27/17 04:48 Labs: Laboratory Last Values WBC 7.9 K/mm3 (4.5-11.0) 09/27/17 04:48 RBC 5.24 M/mm3 (3.65-5.03) H 09/27/17 04:48 Hgb 15.0 gm/dl (11.8-15.2) 09/27/17 04:48 Hct 44.2 % (35.5-45.6) 09/27/17 04:48 MCV 84 fl (84-94) 09/27/17 04:48 MCH 29 pg (28-32) 09/27/17 04:48 MCHC 34 % (32-34) 09/27/17 04:48 RDW 13.4 % (13.2-15.2) 09/27/17 04:48 Plt Count 259 K/mm3 (140-440) 09/27/17 04:48 Lymph % (Auto) 30.2 % (13.4-35.0) 09/27/17 04:48 [place] % (Auto) 9.3 % (0.0-7.3) H 09/27/17 04:48 Eos % (Auto) 0.7 % (0.0-4.3) 09/27/17 04:48 Baso % (Auto) 0.5 % (0.0-1.8) 09/27/17 04:48 Lymph # 2.4 K/mm3 (1.2-5.4) 09/27/17 04:48 [place] # 0.7 K/mm3 (0.0-0.8) 09/27/17 04:48 Eos # 0.1 K/mm3 (0.0-0.4) 09/27/17 04:48 Baso # 0.0 K/mm3 (0.0-0.1) 09/27/17 04:48 Add Manual Diff Complete 09/24/17 00:20 Total Counted 100 09/24/17 00:20 Seg Neutrophils % 59.3 % (40.0-70.0) 09/27/17 04:48 Seg Neuts % (Manual) 67.0 % (40.0-70.0) 09/24/17 00:20 Band Neutrophils % 11.0 % 09/24/17 00:20 Lymphocytes % (Manual) 13.0 % (13.4-35.0) L 09/24/17 00:20 Reactive Lymphs % (Man) 0 % 09/24/17 00:20 Monocytes % (Manual) 9.0 % (0.0-7.3) H 09/24/17 00:20 Eosinophils % (Manual) 0 % (0.0-4.3) 09/24/17 00:20 Basophils % (Manual) 0 % (0.0-1.8) 09/24/17 00:20 Metamyelocytes % 0 % 09/24/17 00:20 Myelocytes % 0 % 09/24/17 00:20 Promyelocytes % 0 % 09/24/17 00:20 Blast Cells % 0 % 09/24/17 00:20 Nucleated RBC % Not Reportable 09/24/17 00:20 Seg Neutrophils # 4.7 K/mm3 (1.8-7.7) 09/27/17 04:48 Seg Neutrophils # Man 20.3 K/mm3 (1.8-7.7) H 09/24/17 00:20 Band Neutrophils # 3.3 K/mm3 09/24/17 00:20 Lymphocytes # (Manual) 3.9 K/mm3 (1.2-5.4) 09/24/17 00:20 Abs React Lymphs (Man) 0.0 K/mm3 09/24/17 00:20 Monocytes # (Manual) 2.7 K/mm3 (0.0-0.8) H 09/24/17 00:20 Eosinophils # (Manual) 0.0 K/mm3 (0.0-0.4) 09/24/17 00:20 Basophils # (Manual) 0.0 K/mm3 (0.0-0.1) 09/24/17 00:20 Metamyelocytes # 0.0 K/mm3 09/24/17 00:20 Myelocytes # 0.0 K/mm3 09/24/17 00:20 Promyelocytes # 0.0 K/mm3 09/24/17 00:20 Blast Cells # 0.0 K/mm3 09/24/17 00:20 WBC Morphology Not Reportable 09/24/17 00:20 Hypersegmented Neuts Not Reportable 09/24/17 00:20 Hyposegmented Neuts Not Reportable 09/24/17 00:20 Hypogranular Neuts Not Reportable 09/24/17 00:20 Smudge Cells Not Reportable 09/24/17 00:20 Toxic Granulation Not Reportable 09/24/17 00:20 Toxic Vacuolation Not Reportable 09/24/17 00:20 Dohle Bodies Not Reportable 09/24/17 00:20 Pelger-Huet Anomaly Not Reportable 09/24/17 00:20 Anne Rods Not Reportable 09/24/17 00:20 Platelet Estimate Appears normal 09/24/17 00:20 Clumped Platelets Not Reportable 09/24/17 00:20 Plt Clumps, EDTA Not Reportable 09/24/17 00:20 Large Platelets Few 09/24/17 00:20 Giant Platelets Not Reportable 09/24/17 00:20 Platelet Satelliting Not Reportable 09/24/17 00:20 Plt Morphology Comment Not Reportable 09/24/17 00:20 RBC Morphology Not Reportable 09/24/17 00:20 Dimorphic RBCs Not Reportable 09/24/17 00:20 Polychromasia Not Reportable 09/24/17 00:20 Hypochromasia Few 09/24/17 00:20 Poikilocytosis Not Reportable 09/24/17 00:20 Anisocytosis 1+ 09/24/17 00:20 Microcytosis Not Reportable 09/24/17 00:20 Macrocytosis Not Reportable 09/24/17 00:20 Spherocytes Not Reportable 09/24/17 00:20 Pappenheimer Bodies Not Reportable 09/24/17 00:20 Sickle Cells Not Reportable 09/24/17 00:20 Target Cells Not Reportable 09/24/17 00:20 Tear Drop Cells Not Reportable 09/24/17 00:20 Ovalocytes Not Reportable 09/24/17 00:20 Helmet Cells Not Reportable 09/24/17 00:20 [place] Bodies Not Reportable 09/24/17 00:20 [place] Rings Not Reportable 09/24/17 00:20 Elva Cells Not Reportable 09/24/17 00:20 Bite Cells Not Reportable 09/24/17 00:20 Crenated Cell Not Reportable 09/24/17 00:20 Elliptocytes Not Reportable 09/24/17 00:20 Acanthocytes (Spur) Not Reportable 09/24/17 00:20 Rouleaux Not Reportable 09/24/17 00:20 Hemoglobin C Crystals Not Reportable 09/24/17 00:20 Schistocytes Not Reportable 09/24/17 00:20 Malaria parasites Not Reportable 09/24/17 00:20 Arnold Bodies Not Reportable 09/24/17 00:20 Hem Pathologist Commnt No 09/24/17 00:20 Sodium 139 mmol/L (137-145) 09/27/17 04:48 Potassium 4.5 mmol/L (3.6-5.0) 09/27/17 04:48 Chloride 103.5 mmol/L (98-107) 09/27/17 04:48 Carbon Dioxide 26 mmol/L (22-30) 09/27/17 04:48 Anion Gap 14 mmol/L 09/27/17 04:48 BUN 11 mg/dL (9-20) 09/27/17 04:48 Creatinine 0.6 mg/dL (0.8-1.5) L 09/27/17 04:48 Estimated GFR > 60 ml/min 09/27/17 04:48 BUN/Creatinine Ratio 18 % 09/27/17 04:48 Glucose 90 mg/dL (75-100) 09/27/17 04:48 Lactic Acid 1.00 mmol/L (0.7-2.0) 09/24/17 15:21 Calcium 8.9 mg/dL (8.4-10.2) 09/27/17 04:48 Total Bilirubin 0.50 mg/dL (0.1-1.2) 09/24/17 00:20 AST 54 units/L (5-40) H 09/24/17 00:20 ALT 23 units/L (7-56) 09/24/17 00:20 Alkaline Phosphatase 116 units/L (35-129) 09/24/17 00:20 Total Creatine Kinase 6034 units/L (55-170) H 09/27/17 04:48 Total Protein 8.5 g/dL (6.3-8.2) H 09/24/17 00:20 Albumin 5.1 g/dL (3.9-5) H 09/24/17 00:20 Albumin/Globulin Ratio 1.5 % 09/24/17 00:20 Urine Color Yellow (Yellow) 09/24/17 06:11 Urine Turbidity Clear (Clear) 09/24/17 06:11 Urine pH 5.0 (5.0-7.0) 09/24/17 06:11 Ur Specific [place] 1.014 (1.003-1.030) 09/24/17 06:11 Urine Protein 30 mg/dl mg/dL (Negative) 09/24/17 06:11 Urine Glucose (UA) Neg mg/dL (Negative) 09/24/17 06:11 Urine Ketones Neg mg/dL (Negative) 09/24/17 06:11 Urine Blood Mod (Negative) 09/24/17 06:11 Urine Nitrite Neg (Negative) 09/24/17 06:11 Urine Bilirubin Neg (Negative) 09/24/17 06:11 Urine Urobilinogen < 2.0 mg/dL (<2.0) 09/24/17 06:11 Ur Leukocyte Esterase Neg (Negative) 09/24/17 06:11 Urine WBC (Auto) 1.0 /HPF (0.0-6.0) 09/24/17 06:11 Urine RBC (Auto) 6.0 /HPF (0.0-6.0) 09/24/17 06:11 Amorphous Crystals 1+ 09/24/17 06:11 Hyaline Casts 3 /LPF 09/24/17 06:11 Blood Type O POSITIVE 09/24/17 15:25 Antibody Screen Negative 09/24/17 15:25
[2017-09-27] MEDS: LOVENOX SUB-Q SCH (21:32)
[2017-09-28] MEDS: NACL 0.9% 1000 ML 1,000 ML IV SCH ×2 (05:25→18:09)
--- NOTE | 2017-09-28 08:45 | Progress Note ---
Assessment and Plan Assessment and plan: Sepsis. Continue IV antibiotics. Blood cultures no growth to date. Right lower lobe community-acquired pneumonia. Continue IV antibiotics and follow-up chest x-ray. Pleurisy. Etiology of chest pain is likely secondary to right lower lobe pneumonia. Toradol when necessary. Rhabdomyolysis. Etiology secondary to the physical exertion . Creatine kinase 2842 today, Continue to follow CK levels/creatinine and continue IV fluid hydration. Increase IVF to NS at 150cc/hr. Acute renal failure. Etiology multifactorial likely secondary to acute kidney injury from sepsis/ATN, vasomotor nephropathy from dehydration and rhabdomyolysis. Resolved. Continue IV fluid hydration. History Interval history: Less muscle cramps, No fever, No chest pain Hospitalist Physical - Physical exam Narrative exam: General: Not in acute distress, lying in bed,obese HEENT:Normocephalic, atraumatic Neck:supple,no JVD Lungs: Clear to auscultation bilaterally, no crackles, no wheeze Heart:S1 and S2 regular, no murmurs, rubs or gallop Abd: soft, non tender, non distended, normal bowel sounds Ext: No edema, no clubbing, no cyanosis Neuro: AAO x 3, moves all extremities. - Constitutional Vitals: Temp Pulse Resp BP Pulse Ox 99.0 F 50 L 16 130/83 100 09/28/17 07:42 09/28/17 07:42 09/28/17 07:42 09/28/17 07:42 09/28/17 07:42 General appearance: Present: no acute distress Results - Labs CBC & Chem 7: 09/27/17 04:48 09/27/17 04:48 Labs: Laboratory Last Values WBC 7.9 K/mm3 (4.5-11.0) 09/27/17 04:48 RBC 5.24 M/mm3 (3.65-5.03) H 09/27/17 04:48 Hgb 15.0 gm/dl (11.8-15.2) 09/27/17 04:48 Hct 44.2 % (35.5-45.6) 09/27/17 04:48 MCV 84 fl (84-94) 09/27/17 04:48 MCH 29 pg (28-32) 09/27/17 04:48 MCHC 34 % (32-34) 09/27/17 04:48 RDW 13.4 % (13.2-15.2) 09/27/17 04:48 Plt Count 259 K/mm3 (140-440) 09/27/17 04:48 Lymph % (Auto) 30.2 % (13.4-35.0) 09/27/17 04:48 [place] % (Auto) 9.3 % (0.0-7.3) H 09/27/17 04:48 Eos % (Auto) 0.7 % (0.0-4.3) 09/27/17 04:48 Baso % (Auto) 0.5 % (0.0-1.8) 09/27/17 04:48 Lymph # 2.4 K/mm3 (1.2-5.4) 09/27/17 04:48 [place]isher # 0.7 K/mm3 (0.0-0.8) 09/27/17 04:48 Eos # 0.1 K/mm3 (0.0-0.4) 09/27/17 04:48 Baso # 0.0 K/mm3 (0.0-0.1) 09/27/17 04:48 Add Manual Diff Complete 09/24/17 00:20 Total Counted 100 09/24/17 00:20 Seg Neutrophils % 59.3 % (40.0-70.0) 09/27/17 04:48 Seg Neuts % (Manual) 67.0 % (40.0-70.0) 09/24/17 00:20 Band Neutrophils % 11.0 % 09/24/17 00:20 Lymphocytes % (Manual) 13.0 % (13.4-35.0) L 09/24/17 00:20 Reactive Lymphs % (Man) 0 % 09/24/17 00:20 Monocytes % (Manual) 9.0 % (0.0-7.3) H 09/24/17 00:20 Eosinophils % (Manual) 0 % (0.0-4.3) 09/24/17 00:20 Basophils % (Manual) 0 % (0.0-1.8) 09/24/17 00:20 Metamyelocytes % 0 % 09/24/17 00:20 Myelocytes % 0 % 09/24/17 00:20 Promyelocytes % 0 % 09/24/17 00:20 Blast Cells % 0 % 09/24/17 00:20 Nucleated RBC % Not Reportable 09/24/17 00:20 Seg Neutrophils # 4.7 K/mm3 (1.8-7.7) 09/27/17 04:48 Seg Neutrophils # Man 20.3 K/mm3 (1.8-7.7) H 09/24/17 00:20 Band Neutrophils # 3.3 K/mm3 09/24/17 00:20 Lymphocytes # (Manual) 3.9 K/mm3 (1.2-5.4) 09/24/17 00:20 Abs React Lymphs (Man) 0.0 K/mm3 09/24/17 00:20 Monocytes # (Manual) 2.7 K/mm3 (0.0-0.8) H 09/24/17 00:20 Eosinophils # (Manual) 0.0 K/mm3 (0.0-0.4) 09/24/17 00:20 Basophils # (Manual) 0.0 K/mm3 (0.0-0.1) 09/24/17 00:20 Metamyelocytes # 0.0 K/mm3 09/24/17 00:20 Myelocytes # 0.0 K/mm3 09/24/17 00:20 Promyelocytes # 0.0 K/mm3 09/24/17 00:20 Blast Cells # 0.0 K/mm3 09/24/17 00:20 WBC Morphology Not Reportable 09/24/17 00:20 Hypersegmented Neuts Not Reportable 09/24/17 00:20 Hyposegmented Neuts Not Reportable 09/24/17 00:20 Hypogranular Neuts Not Reportable 09/24/17 00:20 Smudge Cells Not Reportable 09/24/17 00:20 Toxic Granulation Not Reportable 09/24/17 00:20 Toxic Vacuolation Not Reportable 09/24/17 00:20 Dohle Bodies Not Reportable 09/24/17 00:20 Pelger-Huet Anomaly Not Reportable 09/24/17 00:20 Anne Rods Not Reportable 09/24/17 00:20 Platelet Estimate Appears normal 09/24/17 00:20 Clumped Platelets Not Reportable 09/24/17 00:20 Plt Clumps, EDTA Not Reportable 09/24/17 00:20 Large Platelets Few 09/24/17 00:20 Giant Platelets Not Reportable 09/24/17 00:20 Platelet Satelliting Not Reportable 09/24/17 00:20 Plt Morphology Comment Not Reportable 09/24/17 00:20 RBC Morphology Not Reportable 09/24/17 00:20 Dimorphic RBCs Not Reportable 09/24/17 00:20 Polychromasia Not Reportable 09/24/17 00:20 Hypochromasia Few 09/24/17 00:20 Poikilocytosis Not Reportable 09/24/17 00:20 Anisocytosis 1+ 09/24/17 00:20 Microcytosis Not Reportable 09/24/17 00:20 Macrocytosis Not Reportable 09/24/17 00:20 Spherocytes Not Reportable 09/24/17 00:20 Pappenheimer Bodies Not Reportable 09/24/17 00:20 Sickle Cells Not Reportable 09/24/17 00:20 Target Cells Not Reportable 09/24/17 00:20 Tear Drop Cells Not Reportable 09/24/17 00:20 Ovalocytes Not Reportable 09/24/17 00:20 Helmet Cells Not Reportable 09/24/17 00:20 [place]ide Bodies Not Reportable 09/24/17 00:20 [place] Rings Not Reportable 09/24/17 00:20 Elva Cells Not Reportable 09/24/17 00:20 Bite Cells Not Reportable 09/24/17 00:20 Crenated Cell Not Reportable 09/24/17 00:20 Elliptocytes Not Reportable 09/24/17 00:20 Acanthocytes (Spur) Not Reportable 09/24/17 00:20 Rouleaux Not Reportable 09/24/17 00:20 Hemoglobin C Crystals Not Reportable 09/24/17 00:20 Schistocytes Not Reportable 09/24/17 00:20 Malaria parasites Not Reportable 09/24/17 00:20 Arnold Bodies Not Reportable 09/24/17 00:20 Hem Pathologist Commnt No 09/24/17 00:20 Sodium 139 mmol/L (137-145) 09/27/17 04:48 Potassium 4.5 mmol/L (3.6-5.0) 09/27/17 04:48 Chloride 103.5 mmol/L (98-107) 09/27/17 04:48 Carbon Dioxide 26 mmol/L (22-30) 09/27/17 04:48 Anion Gap 14 mmol/L 09/27/17 04:48 BUN 11 mg/dL (9-20) 09/27/17 04:48 Creatinine 0.6 mg/dL (0.8-1.5) L 09/27/17 04:48 Estimated GFR > 60 ml/min 09/27/17 04:48 BUN/Creatinine Ratio 18 % 09/27/17 04:48 Glucose 90 mg/dL (75-100) 09/27/17 04:48 Lactic Acid 1.00 mmol/L (0.7-2.0) 09/24/17 15:21 Calcium 8.9 mg/dL (8.4-10.2) 09/27/17 04:48 Total Bilirubin 0.50 mg/dL (0.1-1.2) 09/24/17 00:20 AST 54 units/L (5-40) H 09/24/17 00:20 ALT 23 units/L (7-56) 09/24/17 00:20 Alkaline Phosphatase 116 units/L (35-129) 09/24/17 00:20 Total Creatine Kinase 2842 units/L (55-170) H 09/28/17 05:49 Total Protein 8.5 g/dL (6.3-8.2) H 09/24/17 00:20 Albumin 5.1 g/dL (3.9-5) H 09/24/17 00:20 Albumin/Globulin Ratio 1.5 % 09/24/17 00:20 Urine Color Yellow (Yellow) 09/24/17 06:11 Urine Turbidity Clear (Clear) 09/24/17 06:11 Urine pH 5.0 (5.0-7.0) 09/24/17 06:11 Ur Specific [place] 1.014 (1.003-1.030) 09/24/17 06:11 Urine Protein 30 mg/dl mg/dL (Negative) 09/24/17 06:11 Urine Glucose (UA) Neg mg/dL (Negative) 09/24/17 06:11 Urine Ketones Neg mg/dL (Negative) 09/24/17 06:11 Urine Blood Mod (Negative) 09/24/17 06:11 Urine Nitrite Neg (Negative) 09/24/17 06:11 Urine Bilirubin Neg (Negative) 09/24/17 06:11 Urine Urobilinogen < 2.0 mg/dL (<2.0) 09/24/17 06:11 Ur Leukocyte Esterase Neg (Negative) 09/24/17 06:11 Urine WBC (Auto) 1.0 /HPF (0.0-6.0) 09/24/17 06:11 Urine RBC (Auto) 6.0 /HPF (0.0-6.0) 09/24/17 06:11 Amorphous Crystals 1+ 09/24/17 06:11 Hyaline Casts 3 /LPF 09/24/17 06:11 Blood Type O POSITIVE 09/24/17 15:25 Antibody Screen Negative 09/24/17 15:25
[2017-09-29] MEDS: LOVENOX SUB-Q SCH (01:13)
[2017-09-29] MEDS: NACL 0.9% 1000 ML 1,000 ML IV SCH (01:18)
--- NOTE | 2017-09-29 08:37 | Discharge Summary ---
Providers - Providers Date of Admission: 09/24/17 06:43 Date of discharge: 09/29/17 Attending physician: CHRISTIANO REED Primary care physician: ARNOLD OROZCO MD Hospitalization Condition: Fair Disposition: DC-01 TO HOME OR SELFCARE Core Measure Documentation - Palliative Care Palliative Care/ Comfort Measures: Not Applicable - Core Measures Any of the following diagnoses?: none Exam - Constitutional Vitals: Temp Pulse Resp BP Pulse Ox 98.3 F 71 20 133/85 100 09/28/17 23:12 09/28/17 23:12 09/28/17 23:12 09/28/17 23:12 09/28/17 23:12 Plan Activity: advance as tolerated Diet: low fat, low cholesterol, low salt Additional Instructions: 1.Follow up with PCP or [facility] in 1 week. 2.May return to work Tuesday10/03/17 light duty. 3.Repeat creatine kinase in 1 week Follow up with: ARNOLD OROZCO MD [Primary Care Provider] - 3-5 Days
[2017-09-29 08:58] VITALS: BP 139/86
[2017-09-29] MEDS ORDERED: PNEUMOVAX 23 IM ONE (10:30)
== END 2017-09-29 12:40 | disposition home or self-care (01) | DRG 871 ==
LOC: ED 23:14 → 3A 09-24 06:43
PROVIDERS: ADMIT Hospitalist; ATTEND Internal Medicine
PROC: 3E0234Z Introduction of Serum, Toxoid and Vaccine into Muscle, Percutaneous Approach (ICD-10-PCS; principal; 2017-09-29)
DX: A41.9 Sepsis, unspecified organism (principal); J18.1 Lobar pneumonia, unspecified organism; N17.0 Acute kidney failure with tubular necrosis; M62.82 Rhabdomyolysis; F17.200 Nicotine dependence, unspecified, uncomplicated; Z72.89 Other problems related to lifestyle; Z23 Encounter for immunization
CPT/HCPCS: 36415; 71111; 71260; 76770; 80048; 80053; 81001; 82140; 82550; 85007; 85025; 86850; 86900; 86901; 87040; 87205; 90732; 96361; 96372; 96374; 99291; 99406; J0696; J1650; J2060; J2270; J7030; Q0162; Q9967